=== PATIENT | male | born 1945 | race Caucasian/White ===

== ENCOUNTER → 2017-07-08 | Outpatient (CLI) | payer BC ==
[~2017-07-08] MED LIST: ASCAUNK OG; ASPEC325 PO; ASPI81TA21 PO; FEXO180T PO; FISHOIL PO; HYDR-5688 PO; OXYSR/20 PO; RANI150T3 PO; SNK PO; VITA400C3 PO
== END | disposition home or self-care (01) ==
LOC: C.PATHSPEC 17:02
PROVIDERS: ATTEND Urology
DX: N40.0 Benign prostatic hyperplasia without lower urinary tract symptoms (principal)

== ENCOUNTER → 2017-10-08 | Outpatient (CLI) | payer BC ==
[~2017-10-08] MED LIST changes: +ASPI-319 PO; -ASPI81TA21 PO
[2017-10-08 13:10] LABS: BASO % 0.3 %; BASO ABS # 0.02 K/uL (0-0.2); EOS % 3.2 %; EOS ABS # 0.21 K/uL (0-0.5); HEMATOCRIT 44.2 % (42-52); HEMOGLOBIN 14.9 g/dL (14.0-18.0); IG# 0.01 K/uL (0.00-0.02); LYMPH % 18.4 %; LYMPH ABS # 1.19 K/uL (1.2-3.4); MEAN CELL VOLUME 89.1 fL (80-100); MEAN CORPUSCULAR HGB CONC 33.7 g/dl (32-36); MEAN PLATELET VOLUME 10.6 fL (7.4-10.4); MONO % 6.8 %; MONO ABS # 0.44 K/uL (0.11-0.59); NEUT % 71.1 %; PLATELET COUNT 177 K/uL (130-400); RED CELL DISTRIBUTION WIDTH CV 13.4 % (11.5-14.5); RED CELL DISTRIBUTION WIDTH SD 43.7 fL (36.4-46.3); WHITE BLOOD COUNT 6.47 K/uL (4.8-10.8)
[2017-10-08 13:25] LABS: BLOOD UREA NITROGEN 17 mg/dl (7-18); CALCIUM 9.2 mg/dl (8.5-10.1); CARBON DIOXIDE 27 mmol/L (21-32); CREATININE 0.86 mg/dl (0.60-1.40); GLUCOSE 96 mg/dl (70-99); SODIUM 139 mmol/L (136-145)
[2017-10-08 13:30] LABS: CHOLESTEROL 190 mg/dl (0-200); LDL CHOLESTEROL CALCULATED 110 mg/dl
[2017-10-08 13:51] LABS: HEMOGLOBIN A1C 5.2 % (4.5-5.6)
== END | disposition home or self-care (01) ==
LOC: C.LABBC 09:43
PROVIDERS: ATTEND Internal Medicine
DX: C67.9 Malignant neoplasm of bladder, unspecified (principal); D64.9 Anemia, unspecified; R03.0 Elevated blood-pressure reading, without diagnosis of hypertension; Z86.39 Personal history of other endocrine, nutritional and metabolic disease; N40.0 Benign prostatic hyperplasia without lower urinary tract symptoms

== ENCOUNTER → 2017-10-26 | Outpatient (CLI) | payer BC | END | disposition home or self-care (01) | LOC: C.LAB1850 12:06 | PROVIDERS: ATTEND Internal Medicine | DX: G62.9 Polyneuropathy, unspecified (principal) ==

== ENCOUNTER 2022-02-16 19:37 | Observation (INO) ==
[2022-02-16 20:20] LABS: Basophils # (auto) 0.05 K/uL (0-0.2); Basophils % (auto) 0.6 %; Eosinophils # (auto) 0.16 K/uL (0-0.50); Hematocrit (blood only) 44.4 % (40.1-51.0); Hemoglobin 15.1 g/dl (14.0-18.0); Immature Granulocytes # (auto) 0.02 K/uL (0.00-0.02); Immature Granulocytes % (auto) 0.3 %; Lymphocytes # (auto) 1.65 K/uL (1.2-3.4); Lymphocytes % (auto) 20.9 %; Mean Corpuscular Hemoglobin 29.8 pg (25.0-34.0); Mean Corpuscular Volume 87.6 fL (80.0-100.0); Mean Platelet Volume 9.7 fL (9.4-12.4); Monocytes # (auto) 0.66 K/uL (0.24-0.82); Monocytes % (auto) 8.3 %; Neutrophils # (auto) 5.37 K/uL (1.4-6.5); Neutrophils % (auto) 67.9 %; Platelet Count 178 K/uL (130-400); RDW Standard Deviation 41.3 fL (36.4-46.3); Red Blood Count 5.07 M/uL (4.63-6.08); White Blood Count 7.91 K/ul (4.8-10.8)
[2022-02-16 20:23] LABS: Appearance Urine Clear (Clear); Bilirubin Urine Negative (Negative); Blood Urine Negative (Negative); Color Urine Yellow; Glucose Urine UA Negative (Negative); Ketones Urine Trace (Negative); Leukocyte Esterase Urine Negative (Negative); Nitrite Urine Negative (Negative); Protein Urine Negative (Negative); Urobilinogen Urine Negative (Negative)
[2022-02-16 20:48] LABS: Albumin Globulin Ratio 1.8 (0.9-2); Albumin Level 4.4 gm/dl (3.4-5.0); BUN Creatinine Ratio 16.5 (10-20); Bilirubin,Total 1.1 mg/dl (0.2-1.0); Calcium 9.8 mg/dl (8.5-10.1); Creatinine Clr Calc Pharmacy 74.3 ml/min; Est GFR (African American) 99.5 ml/min; Est GFR (Non-African American) 85.8 ml/min; Globulin 2.5 gm/dl (2.5-4.0); Potassium 3.5 mmol/L (3.5-5.1); Total Protein 6.9 gm/dl (6.0-8.3)
[2022-02-16] MEDS ORDERED: SODIUM CHLORIDE 0.9% 1000ML 1,000 ML IV ONE (21:26)
--- NOTE | 2022-02-16 21:29 | Emergency Department Note ---
Impression & Plan Incarcerated umbilical hernia, SBO (small bowel obstruction) ED Provider Note NAME: BERLIN ORTIZ AGE: 76 SEX: M : 1945 ARRIVES VIA: Walk-In INFORMANT: Patient ED PROVIDER(S): Guillermo Anne DO CHIEF COMPLAINT: abdominal pain HPI: Patient is a 76 male with abdominal male who presents the ER for periumbilical abdominal pain which started around the umbilicus. This around 5 PM. Pain is 6 out of 10. He describes as stabbing. No headache or change in vision. No chest pain or shortness of breath. No nausea, vomiting or diarrhea. Last bowel movement was this morning. No other exacerbating or remitting factors. He does note his umbilicus/umbilical hernia has turned slightly purple. It has been present for the past 3 to 4 years. Its always been nonreproducible ROS: See above HPI for pertinent positives & negatives. A total of 10 systems reviewed and were otherwise negative. PAST MEDICAL HISTORY:See Below PAST SURGICAL HISTORY:See Below FAMILY HISTORY:See Below SOCIAL HISTORY:See Below HOME MEDICATIONS:See Below ALLERGIES:See Below VITALS:See Below PHYSICAL EXAMINATION: GENERAL: Sitting up in bed, alert, well appearing, well nourished, no distress, non-toxic EYE EXAM: normal conjunctiva. OROPHARYNX: no exudate, no erythema, lips, buccal mucosa, and tongue normal and mucous membranes are moist NECK: supple, no nuchal rigidity, no adenopathy, non-tender LUNGS: Clear to auscultation. Normal chest wall mechanics HEART: no murmurs, S1 normal and S2 normal ABDOMEN: abdomen soft, umbilical hernia is nonreproducible and slightly tender, normo-active bowel sounds, no masses, no rebound or guarding. UPPER EXTREMITIES: upper extremities are grossly normal. LOWER EXTREMITIES: No pitting edema. NEURO EXAM: Normal sensorium, cranial nerves II-XII grossly intact, normal speech, no gross weakness of arms, no gross weakness of legs. MEDICAL DECISION MAKING: Patient is a 76-year-old male who presents ER for periumbilical abdominal pain notes that his hernia has turned dark purple. IV was established blood work was obtained. Labs showed no significant leukocytosis or anemia. BMP along LFTs bilirubin and lipase was remarkable for T bili 1.1. UA with small amount of ketones. COVID was ordered. CT abdomen pelvis showed incarcerated hernia which was likely combination with a small bowel obstruction. Did attempt to reduce the hernia but felt as though was unsuccessful. Discussed with neurosurgery and patient was seen and evaluated by Monroe Vance. At this time the hernia had been reduced. They will likely take him to the OR tomorrow morning. He declines any pain medications. He was given IV fluids. Triage Nursing notes reviewed. Limited review of prior medical records performed Vital Signs: reviewed and remarkable for no significant abnormalities Differential diagnosis: Differential diagnoses includes but is not limited to gastritis, peptic ulcer disease, GERD, gallbladder disease, pancreatitis, small bowel obstruction, acute coronary syndrome, pericarditis, ischemic bowel, irritable bowel disease, irritable bowel syndrome, appendicitis, diverticulitis, malignancy, hernia, urinary tract infection, torsion, perforation, trauma, infectious. ER treatment provided: See below Diagnostics interpreted by me: ECG: none Cardiac Monitoring: An order was placed for continuous cardiac monitoring. The monitor shows a rate of 60 with sinus rhythm. Laboratory studies: As stated above and show below. Imaging studies: CT abdomen pelvis as described above Consultation(s): Seen and evaluated by general surgery and will be admitted. 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 On statin therapy due to risk of future cardiovascular event Osteoarthritis Peripheral neuropathy Primary hypertension Spinal stenosis, lumbar region with neurogenic claudication Surgical History History of bilateral cataract extraction History of bladder surgery tumor removal 2000 History of colonoscopy History of dental surgery dental implant [place] of [place] spinal [place] [facility] [place] of open reduction and internal fixation (ORIF) procedure right ankle--hardware in place History of removal of cyst off left elbow History of total left knee replacement (TKR) History of total right knee replacement (TKR) History of wisdom tooth extraction Family History Mother Family history of reaction to anesthesia "would feel funny for a couple days after anesthesia" Social History Smoking Status: Former smoker Second Hand Exposure: Yes (father smoked); Hx Alcohol Use: Yes Alcohol type: beer and wine Hx Substance Use: No Preferred Language: Mongolian Communication Ability: Effective Visual Impairment: Limited Hearing Ability: Normal Newspaper Editor Required: No Beliefs That Will Affect Care: None marital status: Current Living Situation: Spouse current occupational status: retired Feels Safe at Home: Yes Assistive Devices: Denture - Upper and Glasses Allergies Allergies Allergy/AdvReac Type Severity Reaction Status Date / Time cranberry Allergy Severe Anaphylaxis Verified 02/16/22 23:46 iodine Allergy Intermediate hives, Verified 02/16/22 23:46 itching Sulfa (Sulfonamide Allergy Intermediate itching, Verified 02/16/22 23:46 Antibiotics) fever venom-wasp Allergy Intermediate swelling Verified 02/16/22 23:46 Home Meds Home Medications Medication Instructions Recorded Confirmed acetaminophen 325 mg tablet 325 mg PO Q6H PRN pain 01/12/19 02/16/22 ascorbic acid (vitamin C) 1,000 mg 1 gm PO QAM 01/12/19 02/16/22 tablet calcium carbonate 600 mg-vitamin 1 tab PO QAM 01/12/19 02/16/22 D3 5 mcg (200 unit) tablet fexofenadine 180 mg tablet 180 mg PO DAILY PRN Allergy 01/12/19 02/16/22 Symptoms multivitamin (Daily Multi-Vitamin 1 tab PO QAM 01/12/19 02/16/22 tablet) vitamin E succinate 268 mg (400 400 units PO QAM 01/12/19 02/16/22 unit) tablet cholecalciferol (vitamin D3) 25 1,000 unit PO QAM 05/02/20 02/16/22 mcg (1,000 unit) capsule rosuvastatin 10 mg tablet 10 mg PO QPM 08/05/21 02/16/22 latanoprost 0.005 % eye drops 1 drp ophthalmic (eye) HS 01/06/22 02/16/22 triamcinolone acetonide 0.025 % 1 applic topical DAILY 01/06/22 02/16/22 topical cream timolol maleate 0.25 % eye drops 1 drp OPB BID 08/29/22 08/29/22 Previous Rx's Medication Instructions Recorded hydrochlorothiazide 12.5 mg tablet 12.5 mg PO QAM #90 tabs 08/18/21 omeprazole 20 mg capsule,delayed 20 mg PO QAM #90 caps 08/18/21 release Results & Data (ED) Vital Signs Vital Signs - 24 hr 02/16/22 19:55 02/16/22 21:18 02/16/22 23:08 Temperature 36.2 C L Temperature Source Temporal Artery Scan Pulse Rate 67 Pulse Rate [Right Finger] 55 L 57 L Pulse Rhythm [Right Finger] Regular Respiratory Rate 20 16 16 Respiratory Effort / Characteristics Non-Labored Respiratory Depth Normal Normal Blood Pressure 162/106 H Blood Pressure [Right Arm] 164/103 H 137/79 Blood Pressure Mean 124 Blood Pressure Mean [Right Arm] 123 98 Pulse Oximetry 96 98 97 Oxygen Delivery Method Room Air Sepsis New/Unexplained Change in Mental Status N/A Sepsis Action Taken by Nursing No Action Required Laboratory Data Result diagrams: 02/16/22 20:06 02/16/22 20:06 Lab Results 02/16/22 02/16/22 02/16/22 Range/Units 20:06 20:06 20:06 WBC 7.91 (4.8-10.8) K/ul RBC 5.07 (4.63-6.08) M/uL Hgb 15.1 (14.0-18.0) g/dl Hct 44.4 (40.1-51.0) % MCV 87.6 (80.0-100.0) fL MCH 29.8 (25.0-34.0) pg MCHC 34.0 (32.0-36.0) g/dL RDW Std Deviation 41.3 (36.4-46.3) fL RDW Coeff of Key[place] 13.0 (11.5-14.5) % Plt Count 178 (130-400) K/uL MPV 9.7 (9.4-12.4) fL Immature Gran % (Auto) 0.3 % Neut % (Auto) 67.9 % Lymph % (Auto) 20.9 % Sargent % (Auto) 8.3 % Eos % (Auto) 2.0 % Baso % (Auto) 0.6 % Neut # (Auto) 5.37 (1.4-6.5) K/uL Lymph # (Auto) 1.65 (1.2-3.4) K/uL Sargent # (Auto) 0.66 (0.24-0.82) K/uL Eos # (Auto) 0.16 (0-0.50) K/uL Baso # (Auto) 0.05 (0-0.2) K/uL Immature Gran # (Auto) 0.02 (0.00-0.02) K/uL Sodium 137 (136-145) mmol/L Potassium 3.5 (3.5-5.1) mmol/L Chloride 102 (98-107) mmol/L Carbon Dioxide 27 (21-32) mmol/L Anion Gap 8 (3-11) BUN 14 (6-23) mg/dl Creatinine 0.85 (0.6-1.4) mg/dl Est Cr Clr Drug Dosing 74.3 ml/min Est GFR ( Amer) 99.5 ml/min Est GFR (Non-Af Amer) 85.8 ml/min BUN/Creatinine Ratio 16.5 (10-20) Glucose 87 (70-99(Fasting)) mg/dl Calcium 9.8 (8.5-10.1) mg/dl Total Bilirubin 1.1 H (0.2-1.0) mg/dl AST 16 (13-39) U/L ALT 18 (7-52) U/L Alkaline Phosphatase 87 (34-104) U/L Total Protein 6.9 (6.0-8.3) gm/dl Albumin 4.4 (3.4-5.0) gm/dl Globulin 2.5 (2.5-4.0) gm/dl Albumin/Globulin Ratio 1.8 (0.9-2) Lipase 15 (11-82) U/L Urine Color Yellow Urine Appearance Clear (Clear) Urine pH 6.0 (4.5-7.5) Ur Specific [place] 1.020 (1.000-1.030) Urine Protein Negative (Negative) Urine Glucose (UA) Negative (Negative) Urine Ketones Trace H (Negative) Urine Blood Negative (Negative) Urine Nitrite Negative (Negative) Urine Bilirubin Negative (Negative) Urine Urobilinogen Negative (Negative) Ur Leukocyte Esterase Negative (Negative) Administered Medications Discontinued Medications Sodium Chloride (Nss 1000ml) 1,000 mls @ 999 mls/hr IV .Q1H1M ONE Stop: 02/16/22 22:26 Last Infusion: 02/16/22 23:10 Dose: 0 mls/hr Documented By: Admin: 02/16/22 22:09 Dose: 999 mls/hr Documented By: JORDEN Discharge Plan Visit Data Chief Complaint: Abdominal Pain Stated Complaint: severe abd pain ED Provider: Guillermo Anne Discharge Problem: Incarcerated umbilical hernia, SBO (small bowel obstruction) Forms Stand Alone Forms: [facility] Prescriptions Prescriptions: No Action omeprazole 20 mg capsule,delayed release(DR/EC) 20 mg PO QAM Qty: 90 3RF hydrochlorothiazide 12.5 mg tablet 12.5 mg PO QAM Qty: 90 3RF calcium carbonate-vitamin D3 600 mg(1,500mg) -200 unit tablet 1 tab PO QAM ascorbic acid (vitamin C) 1,000 mg tablet 1 gm PO QAM fexofenadine 180 mg tablet 180 mg PO DAILY PRN (Reason: Allergy Symptoms) multivitamin [Daily Multi-Vitamin] tablet 1 tab PO QAM acetaminophen 325 mg tablet 325 mg PO Q6H PRN (Reason: pain) vitamin E succinate 400 unit tablet 400 units PO QAM cholecalciferol (vitamin D3) 25 mcg (1,000 unit) capsule 1,000 unit PO QAM latanoprost 0.005 % drops 1 drp ophthalmic (eye) HS triamcinolone acetonide 0.025 % cream 1 applic topical DAILY rosuvastatin 10 mg tablet 10 mg PO QPM timolol maleate 0.25 % drops 1 drp OPB BID Referrals Referrals: Reyna Coughlin MD [Primary Care Provider] -
[2022-02-17] MEDS ORDERED: MoRPHine SULFATE 2 MG/ML CARP IV PRN (00:08)
[2022-02-17] MEDS ORDERED: ceFAZolin 2000MG 2,000 MG/15 ML SYR IV ONE ×2 (00:08→12:20)
[2022-02-17] MEDS ORDERED: ACETAMINOPHEN 1,000 MG/100 ML VIAL IV PRN (00:08)
[2022-02-17] MEDS ORDERED: ONDANSETRON INJ 2 MG/ML 2 ML VIAL IV PRN ×2 (00:08→11:26)
--- NOTE | 2022-02-17 00:21 | History & Physical Report ---
Date of Service February 17, 2022 Assessment & Plan (1) Incarcerated umbilical hernia: Plan: At the time of my interview with the patient it appears as though the patient's hernia is reduced. He was essentially pain-free with a benign abdominal exam at the time of my interview. I discussed with the patient options include being discharged home with close outpatient follow-up versus admission to the hospital and elective repair of his umbilical hernia on 02/17/2022. The patient has elected to be admitted to the hospital with repair of his hernia on 02/17/2022. We will therefore proceed as follows: Implement n.p.o. status Order as needed analgesics Order Antiemetics Provide hydration with IV fluids Preoperative chest x-ray and EKG are completed COVID test has been ordered and is pendingwe will follow for the results of this Preoperative Ancef has been ordered -I discussed with the patient that Dr. Hernandez will discuss with him further definitive plans for what type of surgical repair will be performed. Additional recommendations will based on operative findings and his postoperative recovery We will utilize SCDs for DVT prevention no chemical means due to planned surgery He will be a level 1 full code History of Present Illness Chief Complaint: Umbilical hernia Primary Care Provider: Reyna Coughlin MD This is a 76-year-old male who presented to the emergency department at [facility] secondary abdominal pain. Patient says he was in his usual state of health feeling fine today. He says he had back surgery approximately 1 year ago and as a result of this his balance is off at times so he is undergoing physical therapy. He says he did a relatively strenuous physical therapy session earlier today and then at approximately 5:00 PM he developed some abdominal pain in his lower abdomen and periumbilical area. Patient says he has a known history of an umbilical hernia that has never given him any trouble. He has never sought medical attention for this problem. He notes that when his abdominal pain began he noted that the area around his um bilicus was hard, distended, as well as black and blue. Because of this he presented to the emergency department. He denies any fevers, shakes, or chills. He denies any nausea or vomiting. Patient says he was able to eat today without any adverse sequelae. His most recent oral intake was approximately 10:00 AM. He says he did not eat his evening meal due to the abdominal pain he experienced. He has never had any abdominal surgeries before. In the emergency department the patient had labs and imaging which I independently reviewed. CT scan of the abdomen and pelvis showed findings conc erning for an early partial small bowel obstruction as there was a loop of distended/dilated small bowel entering umbilical hernia with a decompressed loop of small bowel exiting the hernia. There is also some perienteric edema. Labs included a CBC were white blood cell count, hemoglobin, hematocrit, and platelet count were normal. Chemistry profile showed sodium, potassium, BUN, and creatinine were normal. There is no significant elevation of patient's LFTs or lipase. Urinalysis was not indicative of infection. A chest x-ray showed no evidence of CHF or pneumonia. An EKG showed normal sinus rhythm without changes indicative of ischemia. A COVID test is ordered and is pending. I did discuss with the treating emergency room physician who made attempts to reduce the patient's hernia. The emergency room physician was unsure if he was successful or not. By the time of my arrival to visit with the patient the patient notes that the distention, ecchymosis, hardness, and pain associated with his umbilical hernia had markedly improved. At the time of my interview with the patient he was pain-free and was in no distress. Allergies Allergy/AdvReac Type Severity Reaction Status Date / Time cranberry Allergy Severe Anaphylaxis Verified 02/16/22 23:46 iodine Allergy Intermediate hives, Verified 02/16/22 23:46 itching Sulfa (Sulfonamide Allergy Intermediate itching, Verified 02/16/22 23:46 Antibiotics) fever venom-wasp Allergy Intermediate swelling Verified 02/16/22 23:46 Home Medications Medication Instructions Recorded Confirmed Type acetaminophen 325 mg tablet 325 mg PO Q6H PRN pain 01/12/19 02/16/22 History ascorbic acid (vitamin C) 1,000 mg 1 gm PO QAM 01/12/19 02/16/22 History tablet calcium carbonate 600 mg-vitamin 1 tab PO QAM 01/12/19 02/16/22 History D3 5 mcg (200 unit) tablet fexofenadine 180 mg tablet 180 mg PO DAILY PRN Allergy 01/12/19 02/16/22 History Symptoms multivitamin (Daily Multi-Vitamin 1 tab PO QAM 01/12/19 02/16/22 History tablet) vitamin E succinate 268 mg (400 400 units PO QAM 01/12/19 02/16/22 History unit) tablet cholecalciferol (vitamin D3) 25 1,000 unit PO QAM 05/02/20 02/16/22 History mcg (1,000 unit) capsule rosuvastatin 10 mg tablet 10 mg PO QPM 08/05/21 02/16/22 History hydrochlorothiazide 12.5 mg tablet 12.5 mg PO QAM #90 tabs 08/18/21 02/16/22 Rx omeprazole 20 mg capsule,delayed 20 mg PO QAM #90 caps 08/18/21 02/16/22 Rx release latanoprost 0.005 % eye drops 1 drp ophthalmic (eye) HS 01/06/22 02/16/22 History triamcinolone acetonide 0.025 % 1 applic topical DAILY 01/06/22 02/16/22 History topical cream timolol maleate 0.25 % eye drops 1 drp OPB BID 02/16/22 02/16/22 History Past Med/Surg History Medical History BPH (benign prostatic hyperplasia) Cleft palate wears prosthetic denture, 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 GERD (gastroesophageal reflux disease) 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 On statin therapy due to risk of future cardiovascular event Osteoarthritis Peripheral neuropathy Primary hypertension Spinal stenosis, lumbar region with neurogenic claudication Surgical History History of bilateral cataract extraction History of bladder surgery tumor removal 2000 History of colonoscopy History of dental surgery dental implant History of lumbar spinal fusion (~03/2021) @ [facility] [place] History of open reduction and internal fixation (ORIF) procedure right ankle--hardware in place History of removal of cyst off left elbow History of total left knee replacement (TKR) History of total right knee replacement (TKR) History of wisdom tooth extraction Family History Mother Family history of reaction to anesthesia "would feel funny for a couple days after anesthesia" Social History Smoking Status: Never smoker Second Hand Exposure: Yes (father smoked); Hx Alcohol Use: Yes Alcohol type: wine Hx Substance Use: No Preferred Language: Danish Communication Ability: Effective Visual Impairment: Limited Hearing Ability: Normal Petrol Tanker Driver Required: No Beliefs That Will Affect Care: None marital status: Current Living Situation: Spouse Current Living Situation Comment: lives with in 2 story home current occupational status: retired Other Information That Helps Us Care for You: No Feels Safe at Home: Yes Safety Concerns: Feels Safe At This Time Assistive Devices: Cane, Denture - Upper, Denture - Lower, Glasses, Raised Toilet Seat and Walker Review of Systems Constitutional: no fever and no chills Eyes: Wears glasses Ear, Nose, Mouth, Throat: no ear pain Respiratory: no cough and no dyspnea Cardiovascular: no chest pain Gastrointestinal: as per Subjective / HPI and + abdominal pain; no nausea, no vomiting, no constipation and no diarrhea/loose stools Genitourinary: no dysuria Musculoskeletal: no back pain Integumentary: no rash Neurologic: no localized weakness Physical Exam Constitutional: WD/WN, vitals as above Eyes: Wears glasses ENMT: Ears: no hearing impairment Neck: trachea midline Respiratory: normal respiratory effort, lungs clear to auscultation Cardiovascular: Rate/Rhythm: regular rate and regular rhythm Gastrointestinal (Abdomen): Abdomen is soft, nondistended, nonrigid. Bowel sounds were present. There is no rebound tenderness or guarding. I did not appreciate any hernias in the inguinal regions bilaterally. I did examine the patient's umbilicus. The ecchymosis the patient described upon presentation had resolved. There is only a small amount of erythema surrounding the umbilicus. The area was not hard to palpation. I did appreciate what appeared to be a hernia in the umbilicus. Even with deep palpation the area was minimally tender at the time of my exam. Musculoskeletal: No calf tenderness Skin: no rashes Neurologic: moves all extremities Psychiatric: A+Ox3, euthymic affect Results & Data Results & Data ([facility] Vital Signs (Past 12 Hours) Vital Signs Temp Pulse Pulse Resp BP BP Pulse Ox 02/16/22 23:08 57 L 16 137/79 97 02/16/22 21:18 55 L 16 164/103 H 98 02/16/22 19:55 36.2 C L 67 20 162/106 H 96 O2 Del Method 02/16/22 23:08 02/16/22 21:18 02/16/22 19:55 Room Air Code Status & VTE Plan VTE Prophylaxis Plan VTE Prophylaxis will be ordered: Yes Supervising Physician Co-Signing Physician Notes agree with above. came in with incarcerated umbilical hernia, reduced spontaneously, plan for repair. PG Care Time/CCT Total # of Minutes Spent Total Time Spent with Patient: Total time spent is greater than 50% in coordination of care (as documented) at patient's floor/unit and/or counseling patient: Coding Level of Care Code 74244 Initial Inpt Care Lvl 3 Diagnoses Incarcerated umbilical hernia K42.0
[2022-02-17] MEDS: LACTATED RINGER'S 1,000 ML IV SCH ×3 (00:33→17:12)
--- NOTE | 2022-02-17 06:44 | CT Scan Report ---
CT OF THE ABDOMEN AND PELVIS WITHOUT CONTRAST CLINICAL HISTORY: Periumbilical abdominal pain. Hernia. COMPARISON STUDY: Abdominal aortic ultrasound July 07, 2013. CT of the abdomen and pelvis Septemb er 2015. TECHNIQUE: Axial images of the abdomen and pelvis were obtained without IV contrast. Images were revi ewed in the axial, sagittal, and coronal planes. Automated exposure control was utilized for the elian dy. A dose lowering technique was utilized adhering to the principles of ALARA. FINDINGS: Lung bases are unremarkable. Evaluation of the abdomen and pelvis is suboptimal on this une nhanced examination. Unenhanced images of the liver, spleen, adrenal glands, left kidney and pancreas are unremarkable. There is no biliary or pancreatic ductal dilatation. There is no hydronephrosis. T here are no urinary calculi. Water attenuation right renal lesions are suboptimally assessed on this unenhanced exam but favor cysts. Colonic diverticulosis is noted. There is mild inflammation adjacent to a diverticulum of the proximal sigmoid colon shown on axial image 286 of 446 is no free air or ab scess. The appendix is normal. Prostate is enlarged, measuring 5.6 cm transverse dimension. An umbili jose hernia contains a short segment portion of small bowel. There is fluid within the hernia sac with mild adjacent stranding. The upstream small bowel slightly dilated which compared to the distal smal l bowel. Upstream small bowel measures up to 2.6 cm in caliber. Postoperative findings within the spi ne are noted. Old T11 compression fracture is present. IMPRESSION: 1. Umbilical hernia which contains a loop of small bowel. Fluid within the hernia sac. Mild stranding adjacent to the upstream small bowel. This favors an incarcerated hernia with possible strangulation . In addition, mild upstream small bowel dilatation raises the possibility of a developing partial sm all bowel obstruction. 2. Findings consistent with mild acute sigmoid diverticulitis. No free air or abscess. ACT 112: Negative or not required by law. Electronically signed by: Osei Munoz M.D. 02/17/2022 6:42 AM
--- NOTE | 2022-02-17 07:12 | XRay Report ---
XR chest 1V portable CLINICAL HISTORY: Preoperative evaluation. COMPARISON STUDY: Chest radiograph February 26, 2015. FINDINGS: Lung volumes are normal. Minimal density along the left heart border represents atelectasis or scarring when correlating with recent abdominal CT. There is no pneumothorax or pleural effusion. Borderline cardiomegaly. Mediastinal contours are normal. There is no evidence for pulmonary edema. IMPRESSION: No acute cardiopulmonary findings. ACT 112: Negative or not required by law. Electronically signed by: Osei Munoz M.D. 02/17/2022 7:10 AM
[2022-02-17] MEDS: PANTOprazole 40 MG TAB PO SCH (08:12)
[2022-02-17] MEDS: TIMOLOL GFS 0.5% OPH SOLN 74 DROPS/5 ML BTL OPB SCH ×2 (08:13→20:55)
--- NOTE | 2022-02-17 10:11 | Anesthesiology Consultation ---
Date of Service February 17, 2022 Assessment & Plan Chart Review Chart Review: Acceptable Risk for Surgery and Patient NOT seen in Pre Admission Testing Consults Requested none History Surgery Operation Date: 02/17/22 07:00 Proposed Procedures p Umbilical Hernia Repair - Charly Hernandez DO, FACS Height/Weight Height: 6 ft 3 in Weight: 87.231 kg Allergies Allergy/AdvReac Type Severity Reaction Status Date / Time cranberry Allergy Severe Anaphylaxis Verified 02/16/22 23:46 iodine Allergy Intermediate hives, Verified 02/16/22 23:46 itching Sulfa (Sulfonamide Allergy Intermediate itching, Verified 02/16/22 23:46 Antibiotics) fever venom-wasp Allergy Intermediate swelling Verified 02/16/22 23:46 Medications Home Medications Medication Instructions Recorded Confirmed Last Taken acetaminophen 325 mg tablet 325 mg PO Q6H PRN pain 01/12/19 02/16/22 07/17/20 ascorbic acid (vitamin C) 1,000 mg 1 gm PO QAM 01/12/19 02/16/22 08/07/21 tablet calcium carbonate 600 mg-vitamin 1 tab PO QAM 01/12/19 02/16/22 08/07/21 D3 5 mcg (200 unit) tablet fexofenadine 180 mg tablet 180 mg PO DAILY PRN Allergy 01/12/19 02/16/22 08/07/21 Symptoms multivitamin (Daily Multi-Vitamin 1 tab PO QAM 01/12/19 02/16/22 08/07/21 tablet) vitamin E succinate 268 mg (400 400 units PO QAM 01/12/19 02/16/22 08/07/21 unit) tablet cholecalciferol (vitamin D3) 25 1,000 unit PO QAM 05/02/20 02/16/22 08/07/21 mcg (1,000 unit) capsule rosuvastatin 10 mg tablet 10 mg PO QPM 08/05/21 02/16/22 08/07/21 hydrochlorothiazide 12.5 mg tablet 12.5 mg PO QAM #90 tabs 08/18/21 02/16/22 Unknown omeprazole 20 mg capsule,delayed 20 mg PO QAM #90 caps 08/18/21 02/16/22 Unknown release latanoprost 0.005 % eye drops 1 drp ophthalmic (eye) HS 01/06/22 02/16/22 Unknown triamcinolone acetonide 0.025 % 1 applic topical DAILY 01/06/22 02/16/22 Unknown topical cream timolol maleate 0.25 % eye drops 1 drp OPB BID 02/16/22 02/16/22 Unknown Active Medications Generic Name Dose Route Start Last Admin Trade Name Freq PRN Reason Stop Dose Admin Acetaminophen 1,000 mg in 100 mls @ 400 mls/hr 02/17/22 00:08 02/17/22 00:48 Ofirmev IV 02/20/22 00:07 Infused Q8H PRN Infusion pain Lactated Ringer's 1,000 mls @ 100 mls/hr 02/17/22 00:15 02/17/22 01:42 Lr IV 03/19/22 00:14 100 mls/hr .Q10H AMANDEEP Administration Pantoprazole Sodium 40 mg 02/17/22 09:00 02/17/22 08:12 Pantoprazole 40 Mg Tab PO 03/19/22 08:59 40 mg QAM AMANDEEP Administration Timolol Maleate 1 drops 02/17/22 09:00 02/17/22 08:13 Timolol Gfs 0.5% Oph Soln 74 Drops/5 Ml Btl OPB 03/19/22 08:59 1 drops BID AMANDEEP Administration Past Medical History Medical History BPH (benign prostatic hyperplasia) Cleft palate wears prosthetic denture, 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 GERD (gastroesophageal reflux disease) 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 On statin therapy due to risk of future cardiovascular event Osteoarthritis Peripheral neuropathy Primary hypertension Spinal stenosis, lumbar region with neurogenic claudication Past Family History Family History Mother Family history of reaction to anesthesia "would feel funny for a couple days after anesthesia" Past Surgical History Surgical History History of bilateral cataract extraction History of bladder surgery tumor removal 2000 History of colonoscopy History of dental surgery dental implant History of lumbar spinal fusion (~03/2021) @ [facility] History of open reduction and internal fixation (ORIF) procedure right ankle--hardware in place History of removal of cyst off left elbow History of total left knee replacement (TKR) History of total right knee replacement (TKR) History of wisdom tooth extraction Social History Smoking Status: Never smoker Hx Alcohol Use: Yes Alcohol type: wine alcohol intake frequency: a few times a week Hx Substance Use: No substance use type: does not use Physical Exam Vital Signs Last Vital Signs Temp 36.5 C 02/17/22 08:04 Pulse 57 L 02/17/22 08:04 Resp 16 02/17/22 08:04 BP 121/68 02/17/22 08:04 Pulse Ox 95 02/17/22 08:04 O2 Del Method 02/17/22 08:04 Testing Laboratory Results 02/16/22 20:06 02/16/22 20:06 Urine Color Yellow 02/16/22 20:06 Urine Appearance Clear (Clear) 02/16/22 20:06 Urine pH 6.0 (4.5-7.5) 02/16/22 20:06 Ur Specific [place] 1.020 (1.000-1.030) 02/16/22 20:06 Urine Protein Negative (Negative) 02/16/22 20:06 Urine Glucose (UA) Negative (Negative) 02/16/22 20:06 Urine Ketones Trace (Negative) H 02/16/22 20:06 Urine Nitrite Negative (Negative) 02/16/22 20:06 Ur Leukocyte Esterase Negative (Negative) 02/16/22 20:06 Electrocardiogram Date: 02/17/22 Findings: + NSR @ Chest X-Ray Date: 02/17/22 Findings: + NAD
[2022-02-17] MEDS ORDERED: fentaNYL citrate 100 MCG/2 ML VIAL ONE (10:13)
[2022-02-17] MEDS ORDERED: DEXAMETHASONE SOD INJ 4 MG/ML VIAL ONE (10:13)
[2022-02-17] MEDS ORDERED: MIDAZOLAM HCL 1 MG/ML 2ML VIAL ONE (10:13)
[2022-02-17] MEDS ORDERED: ROCURONIUM BROMIDE 10 MG/ML 5 ML VIAL IV ONE (10:13)
[2022-02-17] MEDS ORDERED: LIDOCAINE 2% 2 ML VIAL/AMP(20MG/ML) INFIL ONE (10:13)
[2022-02-17] MEDS ORDERED: ONDANSETRON INJ 2 MG/ML 2 ML VIAL ONE (10:13)
[2022-02-17] MEDS ORDERED: PROPOFOL IV EMULSION 10 MG/ML 20 ML VIAL IV ONE (10:13)
[2022-02-17] MEDS ORDERED: BUPIVACAINE 0.5 % 5 MG/1 ML MPF 30ML VIAL ONE (11:11)
--- NOTE | 2022-02-17 11:23 | Surgery Progress Note ---
Date of Service February 17, 2022 Assessment & Plan (1) Incarcerated umbilical hernia: Plan: 76 y/o male with symptomatic umbilical hernia, desires repair plan for open umbilical hernia repair risks discussed to include but not limited to bleeding, infection, recurrence, chronic pain, damage to surrounding structures, need for future or more extensive surgery, and risks of anesthesia educated on signs and symptoms of incarceration, obstruction, and strangulation return precautions given, call with questions or concerns plan to discharge to home Admission and Anticipated Discharge Date Admission Date: February 17, 2022 Subjective 76-year-old male admitted overnight due to umbilical hernia with incarcerated bowel in ED that reduced in spontaneously. No pain today, no changes overnight. Review of Systems Review of Systems: All systems reviewed & are unremarkable except as noted in HPI & below Physical Exam Constitutional: WD/WN, vitals as above Respiratory: normal respiratory effort, lungs clear to auscultation Cardiovascular: RRR, no murmur, no edema Gastrointestinal (Abdomen): normal bowel sounds, soft, nontender, no hepatosplenomegaly Percussion/Palpation: + hernia (reducible umbilical hernia, 2cm defect) Results & Data ([facility]) Vital Signs (Past 12 Hours) Vital Signs Temp Pulse Resp BP Pulse Ox O2 Del Method 02/17/22 10:49 36.4 C L 63 16 137/80 96 Room Air 02/17/22 08:04 36.5 C 57 L 16 121/68 95 Room Air 02/17/22 05:27 36.8 C 56 L 18 124/67 95 Room Air 02/17/22 01:30 36.4 C L 61 18 148/88 H 95 Room Air Diagnostic Findings CT OF THE ABDOMEN AND PELVIS WITHOUT CONTRAST CLINICAL HISTORY: Periumbilical abdominal pain. Hernia. COMPARISON STUDY: Abdominal aortic ultrasound July 07, 2013. CT of the abdomen and pelvis February 20, 2016. TECHNIQUE: Axial images of the abdomen and pelvis were obtained without IV contrast. Images were reviewed in the axial, sagittal, and coronal planes. Automated exposure control was utilized for the study. A dose lowering technique was utilized adhering to the principles of ALARA. FINDINGS: Lung bases are unremarkable. Evaluation of the abdomen and pelvis is suboptimal on this unenhanced examination. Unenhanced images of the liver, spleen, adrenal glands, left kidney and pancreas are unremarkable. There is no biliary or pancreatic ductal dilatation. There is no hydronephrosis. There are no urinary calculi. Water attenuation right renal lesions are suboptimally assessed on this unenhanced exam but favor cysts. Colonic diverticulosis is noted. There is mild inflammation adjacent to a diverticulum of the proximal sigmoid colon shown on axial image 286 of 446 is no free air or abscess. The appendix is normal. Prostate is enlarged, measuring 5.6 cm transverse dimension. An umbilical hernia contains a short segment portion of small bowel. There is fluid within the hernia sac with mild adjacent stranding. The upstream small bowel slightly dilated which compared to the distal small bowel. Upstream small bowel measures up to 2.6 cm in caliber. Postoperative findings within the spine are noted. Old T11 compression fracture is present. IMPRESSION: 1. Umbilical hernia which contains a loop of small bowel. Fluid within the hernia sac. Mild stranding adjacent to the upstream small bowel. This favors an incarcerated hernia with possible strangulation. In addition, mild upstream small bowel dilatation raises the possibility of a developing partial small bowel obstruction. 2. Findings consistent with mild acute sigmoid diverticulitis. No free air or abscess. PG Care Time/CCT Total # of Minutes Spent Total Time Spent with Patient: Total time spent is greater than 50% in coordination of care (as documented) at patient's floor/unit and/or counseling patient: Coding Level of Care Code 02237 Subseq Hosp Care Lvl 2 Diagnoses Incarcerated umbilical hernia K42.0
[2022-02-17] MEDS ORDERED: fentaNYL citrate 100 MCG/2 ML VIAL IV PRN (11:26)
[2022-02-17] MEDS ORDERED: FLUMAZENIL 0.1 MG/1 ML 10 ML VIAL IV PRN (11:26)
[2022-02-17] MEDS ORDERED: LABETALOL HCL IV 5 MG/ML 20ML IV PRN (11:26)
[2022-02-17] MEDS ORDERED: PROMETHAZINE HCL 12.5 MG in SODIUM CHLORIDE 0.9% 50 ML IV PRN (11:26)
[2022-02-17] MEDS ORDERED: ATROPINE SULFATE 0.1 MG/ML 10ML SYR IV PRN (11:26)
[2022-02-17] MEDS ORDERED: NALOXONE HCL 0.4 MG/1 ML VIAL/CARP IV PRN (11:26)
[2022-02-17] MEDS ORDERED: ePHEDrine sulfate 50 MG/ML AMP IV PRN (11:26)
[2022-02-17] MEDS ORDERED: SUCCINYLCHOLINE CHLORIDE 20 MG/ML 10 ML VIAL IV ONE (12:00)
[2022-02-17] MEDS ORDERED: ceFAZolin 330 MG/ML 1 GM VIAL ONE (12:09)
--- NOTE | 2022-02-17 12:32 | Operative Report ---
PG Post Operative Report Pre & Post Diagnosis Operation Date: 02/17/22 07:00 Pre-Op Diagnosis: Umbilical hernia, recent incarceration with obstruction Post-Op Diagnosis: Umbilical hernia I identified the patient and participated in the time-out.: Yes Procedure Operation Date: 02/17/22 07:00 Actual Procedures p Umbilical Hernia Repair(Not Applicable) - Charly Hernandez DO, SYLWIA Surgeon Charly Hernandez DO, SYLWIA Machining Manager Gabriela Seals Estimated Blood Loss 3 Findings Consistent with Post-Op Diagnosis 2.5 cm defect, 4.3 cm piece of Ventralex mesh sewn into place using interrupted 0 Nurolon sutures. Specimens None Anesthesia Type General Complications none Disposition Accompanied Patient To Recovery: No Disposition: Recovery Room Indications 76-year-old male presented overnight with painful umbilical hernia. CT scan showed incarcerated bowel with developing obstruction and possible strangulation. By the time of his evaluation his hernia had reduced and he was feeling much better. After discussion, he elected for overnight admission with plan for repair the following day. Plan for open umbilical hernia repair. The risks of the procedure were discussed, all questions were answered, and the patient agreed to proceed with surgery as planned. Description of Procedure The patient was properly identified, consented, and taken to the operating room where he was placed in the supine position. General endotracheal anesthesia was induced. SCDs and a safety belt were placed. Preoperative antibiotics were administered. The patient's abdomen was prepped and draped in the standard sterile fashion. Surgical timeout was performed and all parties were in agreement that this was the correct patient and procedure to be performed and we continued as planned. A curvilinear infraumbilical incision was made and deepened down to the fascia with blunt dissection. The umbilical stalk was circumferentially dissected with a Nettie, and divided below the level of the skin. A 2.5 cm fascial defect was encountered. The hernia was reduced. The fascia anteriorly and posteriorly was cleared of investing tissue for several centimeters. Hemostasis was achieved within the wound. A 4.3 cm piece of Ventralex mesh was sown into place with interrupted 0 Nurolon sutures. The wound was irrigated and hemostasis confirmed. The umbilicus was tacked down to the fascia with 3-0 Vicryl sutures. Local anesthetic in the form of 0.5% Marcaine was injected in the fascia and along the skin incision. The skin was c losed with interrupted 3-0 Vicryl deep dermal sutures, followed by 4-0 Monocryl running subcuticular suture. Dermabond was placed over the wound. The patient was extubated in the operating room and taken to the PACU where he recovered without apparent incident. All sponge, instrument and needle counts were correct at the conclusion of the procedure. The patient tolerated the procedure well. The physician's elder assistant was present and scrubbed for the entire to the case. She was critical in positioning the patient, prepping and draping, retraction and exposure, closure of the incisions, and placement of the dressings. I attest to the content of the Intraoperative Record and any orders documented therein. Any exceptions are noted below.
--- NOTE | 2022-02-17 13:14 | Anesthesiology Progress Note ---
Date of Service February 17, 2022 Anesthesia Post Procedure Vital Signs Vital Signs: Temp Pulse Pulse Pulse Resp BP BP 02/17/22 13:10 57 L 20 132/80 02/17/22 13:00 52 L 13 132/82 02/17/22 12:50 59 L 15 144/76 H 02/17/22 12:44 36.1 C L 63 23 143/93 H 02/17/22 10:49 36.4 C L 63 16 137/80 02/17/22 08:04 36.5 C 57 L 16 121/68 02/17/22 05:27 36.8 C 56 L 18 124/67 02/17/22 01:30 36.4 C L 61 18 148/88 H 02/16/22 23:08 57 L 16 137/79 02/16/22 21:18 55 L 16 164/103 H 02/16/22 19:55 36.2 C L 67 20 162/106 H Pulse Ox O2 Del Method O2 Flow Rate 02/17/22 13:10 95 Room Air 02/17/22 13:00 98 Oxymask 2 02/17/22 12:50 98 Oxymask 6 02/17/22 12:44 98 Oxymask 6 02/17/22 10:49 96 Room Air 02/17/22 08:04 95 Room Air 02/17/22 05:27 95 Room Air 02/17/22 01:30 95 Room Air 02/16/22 23:08 97 02/16/22 21:18 98 02/16/22 19:55 96 Room Air Transfer of Care Handoff Completed per policy Notes Mental Status: alert / awake / arousable Patient Amnestic to Procedure: Yes Nausea / Vomiting: adequately controlled Pain: adequately controlled Airway Patency, RR, SpO2: stable & adequate BP & HR: stable & adequate Hydration State: stable & adequate Anesthetic Complications: no major complications apparent
--- NOTE | 2022-02-17 14:14 | Anesthesiology Progress Note ---
Date of Service February 17, 2022 Anesthesia Post Procedure Vital Signs Vital Signs: Temp Pulse Pulse Pulse Resp BP BP 02/17/22 14:00 60 19 117/76 02/17/22 13:45 60 15 119/73 02/17/22 13:30 55 L 16 132/79 02/17/22 13:15 36.1 C L 57 L 19 135/79 02/17/22 13:10 57 L 20 132/80 02/17/22 13:00 52 L 13 132/82 02/17/22 12:50 59 L 15 144/76 H 02/17/22 12:44 36.1 C L 63 23 143/93 H 02/17/22 10:49 36.4 C L 63 16 137/80 02/17/22 08:04 36.5 C 57 L 16 121/68 02/17/22 05:27 36.8 C 56 L 18 124/67 02/17/22 01:30 36.4 C L 61 18 148/88 H 02/16/22 23:08 57 L 16 137/79 02/16/22 21:18 55 L 16 164/103 H 02/16/22 19:55 36.2 C L 67 20 162/106 H Pulse Ox O2 Del Method O2 Flow Rate 02/17/22 14:00 94 Room Air 02/17/22 13:45 95 Room Air 02/17/22 13:30 95 Room Air 02/17/22 13:15 96 Room Air 02/17/22 13:10 95 Room Air 02/17/22 13:00 98 Oxymask 2 02/17/22 12:50 98 Oxymask 6 02/17/22 12:44 98 Oxymask 6 02/17/22 10:49 96 Room Air 02/17/22 08:04 95 Room Air 02/17/22 05:27 95 Room Air 02/17/22 01:30 95 Room Air 02/16/22 23:08 97 02/16/22 21:18 98 02/16/22 19:55 96 Room Air Transfer of Care Handoff Completed per policy Notes Mental Status: alert / awake / arousable and participated in evaluation Patient Amnestic to Procedure: Yes Nausea / Vomiting: adequately controlled Pain: adequately controlled Airway Patency, RR, SpO2: stable & adequate BP & HR: stable & adequate Hydration State: stable & adequate Anesthetic Complications: no major complications apparent and Pt Satisfied with anesthetic care
[2022-02-17] MEDS ORDERED: oxyCODONE/ACETAMINOPHEN 5mg/325mg TAB PO PRN (14:20)
[2022-02-17] MEDS ORDERED: HYDROmorphone INJ 0.5 MG/0.5 ML SYR IV PRN (14:20)
--- NOTE | 2022-02-17 14:23 | Electrocardiogram Report ---
Test Reason : Blood Pressure : / mmHG Vent. Rate : 063 BPM Atrial Rate : 063 BPM P-R Int : 164 ms QRS Dur : 112 ms QT Int : 442 ms P-R-T Axes : 040 -41 -02 degrees QTc Int : 452 ms Normal sinus rhythm Left axis deviation Abnormal ECG When compared with ECG of 26-FEB-2015 11:32, No significant change was found Confirmed by Alexander Snyder ([id number]) on 02/17/2022 2:23:15 PM Referred By: REFERRED SELF Confirmed By:Alexander Snyder
[2022-02-17] MEDS ORDERED: ROSUVASTATIN CALCIUM 10 MG TAB PO SCH (21:00)
[2022-02-17] MEDS ORDERED: LATANOPROST 0.005% OP SOLN 2.5 ML BTL OP SCH (21:00)
[2022-02-18] MEDS: LACTATED RINGER'S 1,000 ML IV SCH (02:45)
--- NOTE | 2022-02-18 07:31 | Surgery Progress Note ---
Date of Service February 18, 2022 Assessment & Plan (1) Incarcerated umbilical hernia: Plan: POD#1 open umbilical hernia repair Patient doing well. VSS Tolerating diet. Pain controlled Incision w/ surgical dressing c/d/i; instructed pt to remove tomorrow Stable for discharge, instructions reviewed, f/u in clinic with Dr. Hernandez within 2 weeks Admission and Anticipated Discharge Date Admission Date: February 17, 2022 Supervising Physician Co-Signing Physician Notes Patient seen and examined, agree with above. POD #1 open umbilical hernia pair with mesh recent incarcerated umbilical hernia. Doing well, pain controlled, tolerating diet. Afebrile stable vitals, some developing ecchymosis around incision but otherwise no infection, no evidence of recurrence. Will discharge to home, wound care instructions activity restrictions and return precautions given. Follow-up in 2 weeks. Subjective Patient said he got some sleep last night. He is feeling well. Tolerating a diet. Denies n/v. Minimal tenderness at surgical site. Voiding. Physical Exam Physical Exam: awake/alert, no distress Gastrointestinal (Abdomen): Inspection/Auscultation: + abdominal surgical incision (dressings c/d/i); abdomen not distended Percussion/Palpation: + abdomen tender (expected mild discomfort at incision) and abdomen soft Results & Data ([facility]) Vital Signs (Past 12 Hours) Vital Signs Temp Pulse Resp BP Pulse Ox O2 Del Method 02/18/22 07:00 36.9 C 57 L 16 125/68 96 Room Air 02/18/22 04:01 36.6 C 60 12 129/69 92 Room Air 02/17/22 23:46 36.8 C 70 14 115/69 94 Room Air 02/17/22 22:22 36.9 C 77 16 115/70 94 Room Air PG Care Time/CCT Total # of Minutes Spent Total Time Spent with Patient: Total time spent is greater than 50% in coordination of care (as documented) at patient's floor/unit and/or counseling patient: Coding Level of Care Code None Diagnoses Incarcerated umbilical hernia K42.0
[2022-02-18] MEDS: TIMOLOL GFS 0.5% OPH SOLN 74 DROPS/5 ML BTL OPB SCH (07:54)
[2022-02-18] MEDS: PANTOprazole 40 MG TAB PO SCH (07:54)
--- NOTE | 2022-02-18 12:45 | Discharge Summary ---
Date of Service February 18, 2022 Admission HPI Per Admitting Provider This is a 76-year-old male who presented to the emergency department at [facility] secondary abdominal pain. Patient says he was in his usual state of health feeling fine today. He says he had back surgery approximately 1 year ago and as a result of this his balance is off at times so he is undergoing physical therapy. He says he did a relatively strenuous physical therapy session earlier today and then at approximately 5:00 PM he developed some abdominal pain in his lower abdomen and periumbilical area. Patient says he has a known history of an umbilical hernia that has never given him any trouble. He has never sought medical attention for this problem. He notes that when his abdominal pain began he noted that the area around his umbilicus was hard, distended, as well as black and blue. Because of this he presented to the emergency department. He denies any fevers, shakes, or chills. He denies any nausea or vomiting. Patient says he was able to eat today without any adverse sequelae. His most recent oral intake was approximately 10:00 AM. He says he did not eat his evening meal due to the abdominal pain he experienced. He has never had any abdominal surgeries before. In the emergency department the patient had labs and imaging which I independently reviewed. CT scan of the abdomen and pelvis showed findings concerning for an early partial small bowel obstruction as there was a loop of distended/dilated small bowel entering umbilical hernia with a decompressed loop of small bowel exiting the hernia. There is also some perienteric edema. Labs included a CBC were white blood cell count, hemoglobin, hematocrit, and platelet count were normal. Chemistry profile showed sodium, potassium, BUN, and creatinine were normal. There is no significant elevation of patient's LFTs or lipase. Urinalysis was not indicative of infection. A chest x-ray showed no evidence of CHF or pneumonia. An EKG showed normal sinus rhythm without changes indicative of ischemia. A COVID test is ordered and is pending. I did discuss with the treating emergency room physician who made attempts to reduce the patient's hernia. The emergency room physician was unsure if he was successful or not. By the time of my arrival to visit with the patient the patient notes that the distention, ecchymosis, hardness, and pain associated with his umbilical hernia had markedly improved. At the time of my interview with the patient he was pain-free and was in no distress. Principal Diagnosis incarcerated umbilical hernia Discharge Exam awake/alert, no distress Gastrointestinal (Abdomen) Inspection/Auscultation: + abdominal surgical incision (dressings c/d/i); abdomen not distended Percussion/Palpation: + abdomen tender (expected mild discomfort at incision) and abdomen soft Discharge Data Allergies Allergy/AdvReac Type Severity Reaction Status Date / Time cranberry Allergy Severe Anaphylaxis Verified 02/16/22 23:46 iodine Allergy Intermediate hives, Verified 02/16/22 23:46 itching Sulfa (Sulfonamide Allergy Intermediate itching, Verified 02/16/22 23:46 Antibiotics) fever venom-wasp Allergy Intermediate swelling Verified 02/16/22 23:46 Consultations 02/16/22 23:44 ED Decision to Admit Stat Procedures Performed Operation Date: 02/17/22 07:00 Actual Procedures p Umbilical Hernia Repair with mesh(Not Applicable) - Charly Hernandez, DO, FACS Ordered Studies 02/16/22 21:58 CT abd pelvis wo con Urgent Hospital Course (1) Incarcerated umbilical hernia: This is a 76y M who presented to the [facility] ED on 02/16/22 with complaints of abdominal pain. CT a/p revealed an incarcerated umbilical hernia. This was successfully reduced in the ER. Options discussed with the patient and decision was made to admit the patient and repair his umbilical hernia the following morning. He was kept NPO with IVF and given pre op abx. On 8 the patient went to the OR with Dr. Hernandez for an open umbilical hernia repair with mesh. The patient tolerated the procedure well, see op note for full details. The patient recovered in the PACU and was transferred back to the med/surg floor for overnight observation. His diet was advanced as tolerated to regular. Pain controlled with prn medications. He was voiding without issues. And surgical incision remained clean/dry/intact. On POD#1 the patient was deemed stable for discharge to home. Dispo instructions reviewed and the patient was instructed to follow up with Dr. Hernandez in clinic within 2 weeks. Total Time Total Time Spent Total Time Spent (In Minutes): 10 Discharge Plan Discharge Items Patient Disposition: Home - Self-Care Reason For Visit: HERNIA Discharge Diagnosis: umbilical hernia repair Activity: Per Instructions section Lifting: No more than 10 pounds Bathing Comment: may shower starting 02/18/22; no soaking in tubs/pools Exercise/Sports: Wait until after follow-up appointment Driving/Machine Use: no driving while taking any narcotics for pain Non-emergency contact: Surgeon Call non-emergency contact if: you have any medication questions, your symptoms worsen, your pain is not controlled, your pain is worsening, your pain is concerning for you, you have a fever, your temperature is above 101.5, your wound has increased redness, your wound has increased drainage and your wound pain has increased Follow-up/Referrals: Charly Hernandez DO, FACS [Physician] - (Please call to schedule follow up in clinic within 2 weeks ) Reyna Coughlin MD [Primary Care Provider] - Diet: Regular Addtl Attending Provider Instructions: You may remove your outer surgical dressing (tape/gauze/cotton ball) on 02/19/22. You will have skin glue over top of your incision that will dissolve over the course of the next couple of weeks. You may shower over skin glue Do not take plain Tylenol if you are taking the narcotic Percocet for pain as they both contain Acetaminophen. You should not exceed >3grams of Acetaminophen within a 24 hour time period Pending Studies at Discharge: No Stand-Alone Forms: My [facility] [place], Smoking Cessation Medications and DC Order Prescriptions: New oxycodone-acetaminophen [Percocet] 5-325 mg tablet 1 - 2 tab PO .q4-6h PRN (Reason: pain, for initial therapy, max 6 tabs per day) Qty: 15 0RF Continued omeprazole 20 mg capsule,delayed release(DR/EC) 20 mg PO QAM Qty: 90 3RF hydrochlorothiazide 12.5 mg tablet 12.5 mg PO QAM Qty: 90 3RF calcium carbonate-vitamin D3 600 mg(1,500mg) -200 unit tablet 1 tab PO QAM ascorbic acid (vitamin C) 1,000 mg tablet 1 gm PO QAM fexofenadine 180 mg tablet 180 mg PO DAILY PRN (Reason: Allergy Symptoms) multivitamin [Daily Multi-Vitamin] tablet 1 tab PO QAM vitamin E succinate 400 unit tablet 400 units PO QAM cholecalciferol (vitamin D3) 25 mcg (1,000 unit) capsule 1,000 unit PO QAM latanoprost 0.005 % drops 1 drp ophthalmic (eye) HS triamcinolone acetonide 0.025 % cream 1 applic topical DAILY rosuvastatin 10 mg tablet 10 mg PO QPM timolol maleate 0.25 % drops 1 drp OPB BID Discontinued acetaminophen 325 mg tablet 325 mg PO Q6H PRN (Reason: pain) Discharge Orders: Discharge Order (Routine); Ordered 02/18/22 Ordered By: Gabriela Seals Admission Data Admit Date/Time: 02/17/22 00:12 Attending Provider: Charly Hernandez Admit Provider: Charly Hernandez Primary Care Provider: Reyna Coughlin Other Providers: Hay Johnson Other Interventions: Discharge Summary Assessment (RN) Last Done: 02/18/22 11:50 Coding Level of Care Code D/C DAY MANAGEMENT <30 MINS Diagnoses Incarcerated umbilical hernia K42.0
== END 2022-02-18 12:17 | disposition home or self-care (01) ==
LOC: ED 19:37 → 3E 02-17 00:12 → INTOOBSV 02-17 00:12 → 3E 02-17 01:13